=== PATIENT | male | born 1945 | race Caucasian/White ===

== ENCOUNTER 2022-12-21 08:30 | Day surgery (SDC) | payer MEDICARE, BC, SELFPAY ==
[2022-12-20 16:56] VITALS: BMI 32.2
[2022-12-21 08:52] VITALS: BP 122/67; PULSE 63; RESP 20; TEMP 36.6; O2SAT 98; BMI 33.0
[2022-12-21 09:13] LABS: Anion Gap 8 mmol/L (8-16); Blood Urea Nitrogen 16 mg/dL (9-20); Calcium 8.4 mg/dL (8.4-10.2); Carbon Dioxide 29 mmol/L (22-30); Chloride 100 mmol/L (98-107); Estimated CRCL calculation 80 ml/min; Estimated Glomerular Filt Rate > 60; Glucose 124 mg/dL (65-110); Potassium 3.9 mmol/L (3.4-5.0); Sodium 137 mmol/L (137-145)
[2022-12-21 09:13] LABS: Basophils Percent Auto 0.5 % (0.2-1.2); Eosinophils Absolute Auto 0.1 K/mm3 (0-0.3); Eosinophils Percent Auto 1.3 % (0-4.4); Hematocrit 45.1 % (42.0-52.0); Hemoglobin 14.7 g/dL (14.0-18.0); Immature Granulocyte Absolute 0.16 K/mm3 (0.00-0.031); Lymphocytes Absolute Auto 1.24 K/mm3 (0.9-3.2); Lymphocytes Percent Auto 15.1 % (18.3-44.2); Mean Corpuscular HGB Conc 32.6 g/dl (32-36); Mean Corpuscular Hemoglobin 29.3 pg (26-34); Mean Platelet Volume 10.2 fl (7.4-10.4); Monocytes Absolute Auto 0.8 K/mm3 (0.1-0.6); Neutrophils Absolute Auto 5.8 K/mm3 (1.3-6.7); Neutrophils Percent Auto 71.1 % (45.5-73.1); Platelet Count Result 254 k/mm3 (150-375); Red Blood Count 5.01 M/mm3 (4.6-6.20); Red Cell Distribution Width 13.5 % (11.5-14.5); White Blood Count 8.2 K/mm3 (4.5-10.0)
[2022-12-21 09:14] LABS: INR 0.9; Prothrombin Time 12.6 Seconds (11.1-14.7)
--- NOTE | 2022-12-21 09:41 | PM.IMHP ---
H&P: HPI History of Present Illness Date/Time: 12/21/22 09:41 Chief Complaint: Pacemaker pulse generator at elective replacement interval Narrative: Mr. Alphonse Escalante is a 77-year-old male who is here for a pacemaker generator change. His [employer] pacemaker was implanted in January 2013 and has reached elective replacement interval. He is not pacemaker dependent. 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 He has hypertension, hyperlipidemia and pre-diabetes. His history of a right middle cerebral artery stroke. I usually see the patient at our [facility] office but could not get availability in the concrete laborer for a generator change in the patient was kind enough to come to [facility] for the procedure. Mr. Escalante is feeling well today, no fevers or infection, no shortness of breath or chest pain. He stopped his Plavix 2 days ago. Review of Systems Constitutional: Constitutional: Denies fever(s) Eyes: Eyes: Reports no additional eye complaints ENT: Denies epistaxis Cardiovascular: Cardiovascular: Denies chest pain, Denies pedal edema, Denies lightheadedness and Denies dyspnea Respiratory: Respiratory: Denies chest congestion and Denies dyspnea Gastrointestinal: Gastrointestinal: Denies abdominal pain and Denies hematochezia Genitourinary: Genitourinary: Denies dysuria Musculoskeletal: Musculoskeletal: Reports no additional musculoskeletal complaints Integumentary/Breasts: Skin/Breast: Reports system reviewed and no additional complaints, except as docu Neurologic: Reports system reviewed and no additional complaints, except as documented and Denies behavioral changes Psychiatric: Psychiatric: Denies behavioral changes [facility] Past Medical History Medical History (Updated 12/21/22 @ 10:05 by Hiral Botello MD) CAD (coronary artery disease) Essential (primary) hypertension History of stroke right middle cerebral stroke 04/2020 treated with tPA, good outcome Mixed hyperlipidemia Pacemaker January 2013, [employer] for sick sinus syndrome, generator change 12/21/2022 Pre-diabetes Surgical History Surgical History (Updated 12/21/22 @ 10:01 by Hiral Botello MD) Hx of 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 Social History Social History (Updated 12/21/22 @ 10:01 by Hiral Botello MD) Social History: . Retired from the [employer]. Retired from [employer], [employer] vet. Volunteered for [employer] and Busy with [employer]. Smoking packs per day: 1 Smoking cigarettes per day: 20.0 Smoking status: Former smoker Tobacco type: cigarettes Smoking end date: 08/14/71 Alcohol intake: never Substance use: never Substance use type: does not use Living arrangements: with family Spiritual care concerns: No Meds Home Medications and Allergies Home Medications Medication Instructions Recorded Confirmed Type amlodipine 5 mg tablet 5 mg PO DAILY 12/20/22 12/21/22 History bimatoprost 0.01 % eye drops 1 drp EACH EYE HS 12/20/22 12/20/22 History (Brittany) brimonidine 0.2 %-timolol 0.5 % 1 drp EACH EYE BID 12/20/22 12/21/22 History eye drops brinzolamide 1 % eye 1 drp EACH EYE BID 12/20/22 12/21/22 History drops,suspension clopidogrel 75 mg tablet 75 mg PO DAILY 12/20/22 12/20/22 History fluoxetine 20 mg capsule 40 mg PO DAILY 12/20/22 12/21/22 History fluticasone propionate 50 1 spray intranasal DAILY PRN 12/20/22 12/20/22 History mcg/actuation nasal allergies spray,suspension rosuvastatin 40 mg tablet 40 mg PO DAILY 12/20/22 12/20/22 History Allergies Allergy/AdvReac Type Severity Reaction Status Date / Time omeprazole Allergy Unknown Nausea Verified 12/21/22 08:49 ibuprofen [From Advil] AdvReac Other Verified 12/21/22 08:49 Vital Signs Vital Signs - 24 hr 12/21/22 08:
--- NOTE | 2022-12-21 10:05 | WPDMODSED ---
Moderate Sedation Note-Pt Data Patient Data Diagnosis: pacemaker pulse generator at elective replacement interval. Present Complaint: Mr. Alphonse Escalante is a 77-year-old male who is here for a pacemaker generator change.? His [employer] pacemaker was implanted in January 2013 and has reached elective replacement interval.? ? He is not pacemaker dependent.? 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 He has hypertension, hyperlipidemia and pre-diabetes.? His history of a right middle cerebral artery stroke. ? 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 Mr. Escalante is feeling well today, no fevers or infection, no shortness of breath or chest pain.? He stopped his Plavix 2 days ago. Procedure to be performed/Plan: Conscious sedation Generator change Allergies Allergy/AdvReac Type Severity Reaction Status Date / Time omeprazole Allergy Unknown Nausea Verified 12/21/22 08:49 ibuprofen [From Advil] AdvReac Other Verified 12/21/22 08:49 Home Medications Medication Instructions Recorded Confirmed Type amlodipine 5 mg tablet 5 mg PO DAILY 12/20/22 12/21/22 History bimatoprost 0.01 % eye drops 1 drp EACH EYE HS 12/20/22 12/20/22 History (Brittany) brimonidine 0.2 %-timolol 0.5 % 1 drp EACH EYE BID 12/20/22 12/21/22 History eye drops brinzolamide 1 % eye 1 drp EACH EYE BID 12/20/22 12/21/22 History drops,suspension clopidogrel 75 mg tablet 75 mg PO DAILY 12/20/22 12/20/22 History fluoxetine 20 mg capsule 40 mg PO DAILY 12/20/22 12/21/22 History fluticasone propionate 50 1 spray intranasal DAILY PRN 12/20/22 12/20/22 History mcg/actuation nasal allergies spray,suspension rosuvastatin 40 mg tablet 40 mg PO DAILY 12/20/22 12/20/22 History Sedation/Anesthesia: No previous sedation/anesthesia problems (including family history). 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 Social History Social History (Updated 12/21/22 @ 10:01 by Hiral Botello MD) Social History: . Retired from [employer]. 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 Smoking packs per day: 1 Smoking cigarettes per day: 20.0 Smoking status: Former smoker Tobacco type: cigarettes Smoking end date: 08/14/71 Alcohol intake: never Substance use: never Substance use type: does not use Living arrangements: with family Spiritual care concerns: No Mod Sed Physical Exam Physical Exam Pre Procedural Exam: Normal: Appearance, Eyes, Ears, Nose, Neck, Throat, Airway, Lungs, Heart Size, Heart Rate, Heart Rhythm, Neuro Exam, Abdomen, Liver, Extremities and Skin ( pacemaker site is well healed) Hours since solid foods: 12 Hours since liquid intake: 12 Mallampati Classification: class III Internal Medicine - PN: Obj Da Vital Signs Vital Signs: Vital Signs - 24 hr 12/21/22 08:52 Temperature 97.9 F Pulse Rate 63 Respiratory Rate 20 Blood Pressure 122/67 Pulse Oximetry 98 Oxygen Delivery Room Air Labs 12/21/22 08:48 12/21/22 08:47 Labs: Laboratory Results - last 24 hr 12/21/22 12/21/22 08:47 08:48 WBC 8.2 RBC 5.01 Hgb 14.7 Hct 45.1 MCV 90.0 MC
--- NOTE | 2022-12-21 11:13 | PM.OP ---
Procedure Note - Brief Procedure Note - Brief Date of procedure: 12/21/22 needs battery change on pacemaker Procedure performed: Conscious sedation Generator change Surgeon: Hiral Botello MD Description of procedure: uneventful generator
[2022-12-21 11:17] VITALS: BP 111/67; PULSE 64; RESP 13; O2SAT 96
--- NOTE | 2022-12-21 11:20 | P.OP_ITS ---
Procedure Note - Detailed Date of Procedure 12/21/22 Pre-op Diagnosis Dual-chamber pacemaker pulse generator at elective replacement interval Post-op Diagnosis Same Procedure Performed conscious sedation pacemakerGenerator change Surgeon Hiral Botello MD Anesthesia Local ( with conscious sedation) Indications Mr. Alphonse Escalante is a 77-year-old male who is here for a pacemaker generator change.? His [employer] pacemaker was implanted in January 2013 and has reached elective replacement interval.? ? He is not pacemaker dependent.? 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 He has hypertension, hyperlipidemia and pre-diabetes.? His history of a right midd le cerebral artery stroke. ? I usually see the patient at our [facility] office but could not get availability in the laborer/key man for a generator change in the patient was kind enough to come to [facility] for the procedure Findings underlying sinus rhythm Description of Procedure CONSCIOUS SEDATION: Assessment: The patient has no history of anesthesia problems. The oropharynx is clear. The patient was deemed to be a good candidate for conscious sedation. The patient had continuous hemodynamic and oximetric monitoring during the procedure. Start time: 1032 Completion time: 1105 Total conscious sedation time: 33 minutes Medications: Versed 2 mg, fentanyl 75 mcg IV push Trained observer: Bárbara Parra RN Outcome: The patient tolerated the procedure well with no complications. PROCEDURE: After informed consent, the patient is brought to the laborer/key man and the left prepectoral area was prepped and draped in usual fashion. The patient was given a prophylactic antibiotic intravenously with Ancef 2 g IV push. After conscious sedation as described above, the area was anesthetized with 1% lidocaine. A skin incision is made with the Plasma Blade and carried down to the pacing capsule which was also incised. Hemostasis is obtained using the Plasma Blade. The lead/s was/were freed from the underlying capsule and inspected and were found to be intact. The pulse generator was delivered from the pocket. The leads were disconnected from the existing device and reconnected to the new device. A gentle tug could not remove it/them. The device and lead/s was/were interrogated and found to be functioning appropriately. The area was copiously irrigated with antibiotic-containing solution. The device was replaced in the pocket. The subcutaneous tissues were closed in a two-layer fashion with interrupted 2 0 Vicryl sutures and the skin was closed in a continuous fashion using 4 0 Vicryl. The area was cleansed, an Aquacel dressing applied. The patient tolerated the procedure well with no complications. Estimated blood loss was negligible. THRESHOLD INFORMATION: right atrial lead: P-wave sensing 3.7 mV, threshold 0.9 volts at 0.4 milliseconds, impedance 506 Ohms Right ventricular lead: R-wave sensing 13.7 mV, threshold 0.6 volts at 0.4 milliseconds, impedance 886 Ohms PROGRAMMED PARAMETERS: DDDR 60-130 Implants PACEMAKER DEVICE INFORMATION: New pulse generator: [employer] model L111, serial [id number] Existing right ventricular lead: [employer]ant model 4137, serial [id number], implanted 01/14/2013 Existing right atrial lead: [employer] model 4136, serial [id number], implanted 01/14/2013 new line explanted pulse generator: [employer] model K173, serial [id number], implanted
[2022-12-21 11:30] VITALS: BP 118/74; PULSE 60; RESP 18; O2SAT 96
[2022-12-21 11:45] VITALS: BP 109/75; PULSE 61; RESP 15; O2SAT 96
[2022-12-21 12:00] VITALS: BP 107/66; PULSE 60; RESP 12; O2SAT 96
[2022-12-21 12:15] VITALS: BP 107/63; PULSE 60; RESP 16; O2SAT 96
== END 2022-12-21 12:35 | disposition home or self-care (01) ==
PROVIDERS: Visit Provider Internal Medicine Cardiovascular Disease
PROC: 0JPT0PZ Removal of Cardiac Rhythm Related Device from Trunk Subcutaneous Tissue and Fascia, Open Approach (ICD-10-PCS; CPT 33228; principal; 2022-12-21 10:00)
DX: Z45.010 Encounter for checking and testing of cardiac pacemaker pulse generator [battery] (principal); I25.2 Old myocardial infarction; I10 Essential (primary) hypertension; E78.5 Hyperlipidemia, unspecified; I25.10 Atherosclerotic heart disease of native coronary artery without angina pectoris; E78.2 Mixed hyperlipidemia; R73.03 Prediabetes; Z86.73 Personal history of transient ischemic attack (TIA), and cerebral infarction without residual deficits; Z79.02 Long term (current) use of antithrombotics/antiplatelets; Z95.1 Presence of aortocoronary bypass graft; Z87.891 Personal history of nicotine dependence
CPT/HCPCS: 33228; 36415; 80048; 85025; 85610; C1785; J0690; J2250; J3010; J7040